=== PATIENT | male | born 1945 | race African-American/Black ===

== ENCOUNTER 2019-05-14 18:59 | Inpatient (IN) ==
[2019-05-14] MEDS ORDERED: methylPREDNISolone SOD SUC 125 MG/2 ML VIAL IV STA (19:06)
[2019-05-14] MEDS ORDERED: ALBUTEROL/IPRATROPIUM 3 ML NEB RESP TX STA ×2 (19:06→21:18)
[2019-05-14 19:20] LABS: Basophils # 0.1 10*3/uL (0.0-0.2); Basophils % 0.4 % (0.0-0.8); Eosinophils # 1.4 10*3/uL (0.0-0.87); Eosinophils % 10.4 % (0.00-10.9); Hematocrit 37.8 VOL% (42.0-52.0); Hemoglobin 12.3 GM/DL (14.0-18.0); Immature Granulocytes % 0.5 %; Immature Granulocytes Absolute 0.06 #; Lymphocytes # 2.3 10*3/uL (1.4-4.0); Lymphocytes % 17.4 % (21.2-54.2); Mean Corpuscular HGB Conc 32.5 GM/DL (32-36); Mean Corpuscular Volume 88.1 FL (87-102); Mean Platelet Volume 10.5 FL (9.6-12.0); Monocytes % 5.2 % (1.7-12.7); Neutrophils % 66.1 % (38.7-73.9); Platelet Count 270 T/CUMM (130-400); Red Blood Count 4.29 MC/CUMM (3.8-5.5); Red Cell Distribution Width 14.4 % (9.3-17.3); White Blood Count 12.9 T/CUMM (4-12)
[2019-05-14 19:43] LABS: Albumin 3.5 G/DL (3.4-5.0); Bilirubin,Total 0.4 MG/DL (0.2-1.0); Calcium 8.8 MG/DL (8.5-10.1); Osmolality,Calculated 277.7 MOS/KG (273-304); Total Protein 6.7 G/DL (6.4-8.3)
[2019-05-14 21:46] LABS: Allen Test Positive
[2019-05-14 21:47] LABS: ABG HCO3 20.3 MMOL/L (20-26); ABG Oxygen Saturation 98.2 % (95-100); ABG PCO2 31.5 MM HG (35-48); ABG PH 7.387 (7.35-7.45); ABG TCO2 16.6 MMOL/L (23-27)
[2019-05-14] MEDS ORDERED: diphenhydrAMINE CAP 25 MG CAPSULE PO PRN (22:03)
[2019-05-14] MEDS ORDERED: guaiFENesin/DM ER 600-30 MG TABLET PO PRN (22:03)
[2019-05-14] MEDS ORDERED: DEXTROSE 50% 25 GM/50 ML VIAL IV PRN (22:03)
[2019-05-14] MEDS ORDERED: NICOTINE 21 MG/24 HR PATCH TRANSDERM PRN (22:03)
[2019-05-14] MEDS ORDERED: BISACODYL 5 MG TABLET PO PRN (22:03)
[2019-05-14] MEDS ORDERED: GLUCAGON 1 MG VIAL IM PRN (22:03)
[2019-05-14] MEDS ORDERED: ACETAMINOPHEN 325 MG TABLET PO PRN (22:03)
[2019-05-14] MEDS ORDERED: MORPHINE 4 MG/1 ML VIAL IV PRN (22:03)
[2019-05-14] MEDS ORDERED: ONDANSETRON 4 MG/2 ML VIAL IV PRN (22:03)
[2019-05-14] MEDS ORDERED: ALBUTEROL 2.5 MG/3 ML NEB RESP TX PRN (22:03)
[2019-05-14] MEDS: cefTRIAXone 1,000 MG in SYRINGE 1 EACH IV SCH (23:27)
[2019-05-15] MEDS: ALBUTEROL/IPRATROPIUM 3 ML NEB RESP TX SCH ×4 (00:25→18:56)
[2019-05-15] MEDS: methylPREDNISolone SOD SUC 40 MG/1 ML VIAL IV SCH ×4 (01:47→21:55)
[2019-05-15 05:07] LABS: Basophils % 0.1 % (0.0-0.8); Eosinophils % 0.1 % (0.00-10.9); Hematocrit 35.2 VOL% (42.0-52.0); Hemoglobin 11.7 GM/DL (14.0-18.0); Immature Granulocytes % 0.3 %; Immature Granulocytes Absolute 0.02 #; Lymphocytes # 0.9 10*3/uL (1.4-4.0); Lymphocytes % 11.6 % (21.2-54.2); Mean Corpuscular HGB Conc 33.2 GM/DL (32-36); Mean Corpuscular Volume 87.1 FL (87-102); Mean Platelet Volume 11.3 FL (9.6-12.0); Monocytes % 1.4 % (1.7-12.7); Neutrophils % 86.5 % (38.7-73.9); Platelet Count 237 T/CUMM (130-400); Red Blood Count 4.04 MC/CUMM (3.8-5.5); Red Cell Distribution Width 14.3 % (9.3-17.3); White Blood Count 7.4 T/CUMM (4-12)
[2019-05-15 05:30] LABS: Bilirubin,Total 0.4 MG/DL (0.2-1.0); Calcium 8.9 MG/DL (8.5-10.1); Osmolality,Calculated 281.4 MOS/KG (273-304); Total Protein 6.7 G/DL (6.4-8.3)
[2019-05-15 05:41] LABS: Burr Cells Slight; Hypochromasia 1+; Lymphocytes 8 % (20-55); Ovalocytes Slight; Platelet Estimate Adequate; Segmented Neutrophils 91 % (50-85); Total Cells Counted 100
[2019-05-15] MEDS: INSULIN REGULAR 100 UNIT/ML SUBCUT SCH ×5 (07:49→21:26)
[2019-05-15] MEDS: PANTOPRAZOLE 40 MG TABLET PO SCH (08:03)
[2019-05-15] MEDS ORDERED: MAGNESIUM HYDROXIDE SUSP 30 ML UDCUP PO PRN (14:12)
[2019-05-15] MEDS ORDERED: ALUMINUM/MAGNES/SIMETH MAX STR 30 ML UDCUP PO PRN (14:12)
[2019-05-15] MEDS: POTASSIUM CHLORIDE 10 MEQ TABLET PO SCH (16:05)
[2019-05-15] MEDS: INSULIN ASPART PROTAMINE/ASPART 70/30 100 UNIT/ML SUBCUT SCH (18:52)
[2019-05-15] MEDS: metFORMIN 500 MG TABLET PO SCH (18:53)
[2019-05-15] MEDS: cefTRIAXone 1,000 MG in SYRINGE 1 EACH IV SCH (22:00)
[2019-05-16] MEDS: ALBUTEROL/IPRATROPIUM 3 ML NEB RESP TX SCH ×4 (00:24→19:20)
[2019-05-16] MEDS: methylPREDNISolone SOD SUC 40 MG/1 ML VIAL IV SCH (05:27)
[2019-05-16 06:01] LABS: Hematocrit 38.5 VOL% (42.0-52.0); Hemoglobin 12.9 GM/DL (14.0-18.0); Immature Granulocytes % 0.4 %; Immature Granulocytes Absolute 0.04 #; Lymphocytes # 1.1 10*3/uL (1.4-4.0); Lymphocytes % 9.7 % (21.2-54.2); Mean Corpuscular HGB Conc 33.5 GM/DL (32-36); Mean Corpuscular Volume 86.3 FL (87-102); Mean Platelet Volume 10.9 FL (9.6-12.0); Monocytes % 3.5 % (1.7-12.7); Neutrophils % 86.4 % (38.7-73.9); Platelet Count 268 T/CUMM (130-400); Red Blood Count 4.46 MC/CUMM (3.8-5.5); Red Cell Distribution Width 14.2 % (9.3-17.3)
[2019-05-16 06:31] LABS: Calcium 9.2 MG/DL (8.5-10.1); Osmolality,Calculated 290.8 MOS/KG (273-304)
[2019-05-16] MEDS: INSULIN REGULAR 100 UNIT/ML SUBCUT SCH ×4 (08:26→22:34)
[2019-05-16] MEDS: ASPIRIN EC 81 MG TABLET PO SCH (08:27)
[2019-05-16] MEDS: metFORMIN 500 MG TABLET PO SCH ×2 (08:27→16:21)
[2019-05-16] MEDS: PANTOPRAZOLE 40 MG TABLET PO SCH (08:27)
[2019-05-16] MEDS: POTASSIUM CHLORIDE 10 MEQ TABLET PO SCH (08:27)
[2019-05-16] MEDS: INSULIN ASPART PROTAMINE/ASPART 70/30 100 UNIT/ML SUBCUT SCH ×2 (09:33→17:00)
[2019-05-16] MEDS: cefTRIAXone 1,000 MG in SYRINGE 1 EACH IV SCH (22:45)
[2019-05-16] MEDS: predniSONE 20 MG TABLET PO SCH (22:47)
[2019-05-16] MEDS: FLUTICASONE 44 MCG/PUFF INHALER 10.6 GM INH SCH (22:56)
[2019-05-17 06:05] LABS: Eosinophils % 0.1 % (0.00-10.9); Hematocrit 41.3 VOL% (42.0-52.0); Hemoglobin 13.8 GM/DL (14.0-18.0); Immature Granulocytes % 0.2 %; Immature Granulocytes Absolute 0.03 #; Lymphocytes # 1.1 10*3/uL (1.4-4.0); Lymphocytes % 8.5 % (21.2-54.2); Mean Corpuscular HGB Conc 33.4 GM/DL (32-36); Mean Corpuscular Volume 87.1 FL (87-102); Mean Platelet Volume 11.5 FL (9.6-12.0); Monocytes % 3.3 % (1.7-12.7); Neutrophils % 87.9 % (38.7-73.9); Platelet Count 257 T/CUMM (130-400); Red Blood Count 4.74 MC/CUMM (3.8-5.5); Red Cell Distribution Width 14.3 % (9.3-17.3); White Blood Count 13.3 T/CUMM (4-12)
[2019-05-17 06:32] LABS: Bilirubin,Total 0.6 MG/DL (0.2-1.0); Osmolality,Calculated 284.8 MOS/KG (273-304); Total Protein 6.8 G/DL (6.4-8.3)
[2019-05-17] MEDS: ALBUTEROL/IPRATROPIUM 3 ML NEB RESP TX SCH ×2 (07:18)
[2019-05-17 07:49] VITALS: BP 137/89
[2019-05-17] MEDS: FLUTICASONE 44 MCG/PUFF INHALER 10.6 GM INH SCH (08:03)
[2019-05-17] MEDS: INSULIN ASPART PROTAMINE/ASPART 70/30 100 UNIT/ML SUBCUT SCH (08:03)
[2019-05-17] MEDS: predniSONE 20 MG TABLET PO SCH (08:05)
[2019-05-17] MEDS: metFORMIN 500 MG TABLET PO SCH (08:05)
[2019-05-17] MEDS: ASPIRIN EC 81 MG TABLET PO SCH (08:05)
[2019-05-17] MEDS: POTASSIUM CHLORIDE 10 MEQ TABLET PO SCH (08:05)
[2019-05-17] MEDS: INSULIN REGULAR 100 UNIT/ML SUBCUT SCH (08:05)
[2019-05-17] MEDS: PANTOPRAZOLE 40 MG TABLET PO SCH (08:06)
== END 2019-05-17 11:51 | disposition home or self-care (01) | DRG 192 ==
LOC: EDUNIT# → EDBD → N.EDINP 18:59 → N.ED 18:59 → N.2E 23:26 → SUATTDRO 05-16 09:43
PROVIDERS: ADMIT Internal Medicine; ATTEND Internal Medicine Nephrology